=== PATIENT | male | born 1975 ===

== ENCOUNTER 2017-09-22 21:08 | Inpatient (IN) | payer OTHER ==
--- NOTE | 2017-09-22 23:12 | ED ---
Psychiatric Complaint - HPI Summary HPI Summary: Patient is a 42-year-old male who presents to the emergency department after the patient was transferred from [facility] with a chief complaint of having suicidal or homicidal ideation. The patient was medically clear at this [facility]. Patient reports that he will for a concert and he took "a pill" and that he makes him very paranoid, anxious, agitated and with the feelings of having to kill someone or himself. Patient reports he is feeling paranoid and having hallucinations visual and auditory. He reports no past medical history, positive left elbow surgery. Patient has family history of hypertension. - History Of Current Complaint Chief Complaint: EDMentalHealth Time Seen by Provider: 09/22/17 22:58 - Allergies/Home Medications Allergies/Adverse Reactions: Allergies Allergy/AdvReac Type Severity Reaction Status Date / Time No Known Allergies Allergy Verified 09/22/17 21:10 PMH/Surg Hx/FS Hx/Imm Hx Previously Healthy: Yes Endocrine/Hematology History: Denies: Hx Anticoagulant Therapy, Hx Blood Disorders, Hx Blood Transfusions, Hx Bone Marrow Disease, Hx Diabetes, Hx Systemic Lupus Erythematosus, Hx Sickle Cell Disease, Hx Thyroid Disease, Hx Anemia, Hx Unexplained Bleeding, Hx Coagulopothy, Autoimmune Disease, Other Endocrine/Hematological Disorders Cardiovascular History: Denies: Hx Aneurysm, Hx Angina, Hx Angioplasty, Hx Atrial Fibrillation, Hx Auto Implanted Cardiovert Defib, Hx Cardiac Arrest, Hx Cardiomegaly, Hx Congenital Heart Disease, Hx Congestive Heart Failure, Hx Coronary Artery Disease, Hx Deep Vein Thrombosis, Hx Embolism, Hx Hypercholesterolemia, Hx Hypotension, Hx Hypertension, Hx Myocardial Infarction, Hx Pacemaker/ICD, Hx Peripheral Vascular Disease, Hx Rheumatic Fever, Hx Syncope, Hx Valvular Heart Disease, Hx Supraventricular Ventricular Tachycardia, Other Cardiovascular Problems/Disorders Respiratory History: Denies: Hx Asthma, Hx Bronchopulmonary Dysplasia, Hx Chronic Bronchitis, Hx Chronic Obstructive Pulmonary Disease (COPD), Hx Cystic Fibrosis, Hx Lung Cancer , Hx Pleural Effusion, Hx Pneumonia, Hx Pulmonary Edema, Hx Pulmonary Embolism, Hx Seasonal Allergies, Hx Sleep Apnea, Other Respiratory Problems/Disorders GI History: Denies: Hx Cirrhosis, Hx Crohn's Disease, Hx Diverticulosis, Hx Gall Bladder Disease, Hx Gastroesophageal Reflux Disease, Hx Gastrointestinal Bleed, Hx Hiatal Hernia, Hx Irritable Bowel, Hx Jaundice, Hx Obstructive Bowel, Hx Ileostomy, Hx Pyloric Stenosis, Hx Ulcer, Hx Urosepsis, Other GI Disorders Musculoskeletal History: Reports: Other Musculoskeletal History - left elbow surgery Psychiatric History: Reports: Hx Anxiety Denies: Hx Eating Disorder, Hx of Violent Episodes Against Others - Cancer History Hx Hematologic Symptoms: No - Patient denies Infectious Disease History: No Infectious Disease History: Denies: Traveled Outside the [place] in Last 30 Days - Family History Known Family History: Positive: None, Hypertension Negative: Cardiac Disease, Diabetes, Renal Disease, Respiratory Disease Review of Systems Constitutional: Negative Eyes: Negative ENT: Negative Cardiovascular: Negative Respiratory: Negative Gastrointestinal: Negative Genitourinary: Negative Musculoskeletal: Negative Skin: Negative Neurological: Negative Psychological: Other - delusional, paranoia, hallucinations. Positive: Anxious. Negative: Depressed All Other Systems Reviewed And Are Negative: Yes Physical Exam - Summary Physical Exam Summary: VITAL SIGNS: Reviewed. GENERAL: Patient is a well developed and nourished male who is lying comfortable in the stretcher. Patient is not in any acute respiratory distress. HEAD AND FACE: No signs of trauma. No ecchymosis, hematomas or skull depressions. No sinus tenderness. EYES: PERRLA, EOMI x 2, No injected conjunctiva, no nystagmus. EARS: Hearing grossly intact. Ear canals and tympanic membranes are within normal limits. MOUTH: Oropharynx within normal limits. NECK: Supple, trachea is midline, no adenopathy, no JVD, no carotid bruit, no c- spine tenderness, neck with full ROM. CHEST: Symmetric, no tenderness at palpation LUNGS: Clear to auscultation bilaterally. No wheezing or crackles. CVS: Regular rate and rhythm, S1 and S2 present, no murmurs or gallops appreciated. ABDOMEN: Soft, non-tender. No signs of distention. No rebound no guarding, and no masses palpated. Bowel sounds are normal. EXTREMITIES: FROM in all major joints, no edema, no cyanosis or clubbing. NEURO: Alert and oriented x 3. No acute neurological deficits. Speech is normal and follows commands. SKIN: Dry and warm PSYCH: Depressed, quiet, positive suicidal thoughts and plan. Positive homicidal thoughts. Positive pressure speech. No tangential speech. Vital Signs On Initial Exam: Initial Vitals Temp Pulse Resp BP Pulse Ox 98.4 F 89 16 136/90 97 09/22/17 21:09 09/22/17 21:09 09/22/17 21:09 09/22/17 21:09 09/22/17 21:09 Diagnostics - Vital Signs Vital Signs Temp Pulse Resp BP Pulse Ox 09/22/17 21:09 98.4 F 89 16 136/90 97 - Laboratory Lab Statement: Any lab studies that have been ordered have been reviewed, and results considered in the medical decision making process. Course/Dx - Course Assessment/Plan: Patient is a 42-year-old male who was transferred from [facility] due to paranoia, suicidal ideation and homicidal ideation. Patient was medically clear by [facility] physician audiology assistant with normal blood work. Patient is awaiting for medical trains. Patient was ablated by Dr. Patel from psychiatry and he recommends for the patient to be admitted to his services for substance induced psychosis. 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
[2017-09-23] MEDS ORDERED: Acetaminophen TAB* 325 MG PO PRN (01:53)
[2017-09-23] MEDS: Vitamin THERAPEUTIC TAB PO SCH (12:07)
--- NOTE | 2017-09-23 18:05 | HP ---
HISTORY AND PHYSICAL: DATE OF ADMISSION: 09/23/17 IDENTIFYING DATA: Mr. Gordon is a 42-year-old male, who is unemployed, domiciled, and estranged from his 15-year-old daughter. He drove himself to this hospital and to request admission because of suicidal ideation with plan to hang himself. SOURCE OF INFORMATION: The patient is an extremely paranoid and a reluctant historian. This note is dictated based on a limited interview with the patient , review of admission data and nursing progress notes. CHIEF COMPLAINT: "I drove myself to this hospital to let people know I intended to kill myself!" HISTORY OF PRESENT ILLNESS: Lawrence describes that he drove from his home in [place] last Monday to attend a Phish in [place], [place]. He camped around the concert area as part of a group of other motorists who drove for the same reaason. He recalled using, NMDA, methamphetamines and cannabis last Monday. On morning the group organizing the concert announced that it was canceled because of problem with water contamination in the area. Most of the motorists started leaving after the announcement and as he was getting ready himself to leave "he noticed bad people looking at him," asserts that the people started chanting the name of his dog (River) and he realized they were trying to entice him to go retrieve his dog so they could attack him on the way. He asserts the people followed him to his car, acting strangely. He drove around to several locations and the same cars continued to follow him; he pulled over and the cars pulled over also. He became frightened and suicidal , he thought that he would rather kill himself than be killed by other people. He changed his miind and decided to drive himself to the emergency room of this hospital.The patient describes stressors of chronic pain from a fractured left elbow about a year ago, unemployment and lack of social support. REVIEW OF PSYCHIATRIC SYMPTOMS: The patient denies auditory or visual hallucinations, admits to paranoid and persecutory delusions that people are after him to harm him, that a tracking device was placed on his car to monitor his movement, that a drug ring that is after him and has already obtained his address in [place]. He talks about selling his car, his house, changing his phone number, and relocating to [place] where he has relatives. He denies manic symptoms such as decreased need for sleep, increased goal directedness, racing thoughts, pressured speech, grandiosity or involvement in activities with potential for consequences. He endorses high anxiety. He denies panic attacks. He denies signs and symptoms of depression. PAST PSYCHIATRIC HISTORY: History of 1 previous admission about 2 years ago at [facility] in [place] following a suicide attempt. He reportedly tried to jump in front of a train and transit workers grabbed him and prevented him from doing so. At the time, he was under stress from homelessness and drug addiction. He recalls previous trial of Wellbutrin for about a month for depression made him feel numb and he self-discontinued it. He denies any history of violence or self- injury. SUBSTANCE ABUSE HISTORY: The patient reports that he was addicted to crack cocaine for about 6 years until completing an inpatient drug program in [place] called [facility]. He reports using marijuana daily that is prescribed to him because of his pain. He admits to occasional use of NMDA and methamphetamines. PAST MEDICAL HISTORY: The patient reports chronic pain from his left elbow that he fractured and had about 22 surgeries to repair it. FAMILY HISTORY OF PSYCHIATRIC ILLNESS: The patient reports being unaware of any family history of psychiatric illnesses or completed suicide. PERSONAL AND SOCIAL HISTORY: The patient is from [place], [place]. His parents and his maternal grandmother are still living and are his main sources of support. He graduated from high school. He has worked in construction in the past, but has not been able to do so since the fracture of his left elbow in September 2016. His application for Social Security Disability was denied at least 3 times. He was and he fathered a now 15-year-old daughter. He is now now and he does not have contact with neither his daughter nor his ex-. He identified as being heterosexual. REVIEW OF MEDICAL SYMPTOMS: Pain and limitation in the range of movement of left elbow. PHYSICAL EXAMINATION GENERAL: He is a well-appearing 42-year-old male , who does not appear to be in any acute physical distress. He is alert, oriented x3. ADMISSION VITAL SIGNS: Blood pressure is 111/78, pulse is 87, respirations 16, temperature 96.8. HEENT: Head: Atraumatic, normocephalic, symmetrical. Eyes: PERRLA. Tympanic membranes intact. Sclerae anicteric. Conjunctivae clear. NECK: Trachea midline, freely mobile. No cervical lymphadenopathy. No nuchal rigidity. LUNGS: Clear to auscultation bilaterally. HEART: Regular rate and rhythm. S1, S2. No murmurs, gallops, or rubs. BREASTS: No mass or discharge. ABDOMEN: Soft, nontender. No masses, organomegaly, or rebound tenderness. No scars noted. Active bowel sounds in all 4 quadrants. GENITAL: Exam not performed. RECTAL: Exam not performed. EXTREMITIES: Pain and limitation in the range of movement in his left elbow. NEUROLOGIC: Cranial nerves II through XII are intact. Cerebellar function intact. Muscle strength grade 5/5 in all extremities except for his left one. STRUCTURAL EXAM: The patient examined in both supine and upright positions. No gross AP or lateral asymmetry. Gait and movement are within normal limits. SKIN: Skin texture, turgor, and pigmentation are within normal limits. MENTAL STATUS EXAMINATION: He is a well-appearing 42-year-old white male with balding hair pattern, who looks his stated age. He is adequately groomed, dressed in hospital garb. He makes intense eye contact. He presents as hypervigilant, frequently looking over his shoulders. His speech is spontaneous , normal rate, rhythm and volume. His affect is constricted. Mood is anxious. Thoughts are linear and goal directed. There are evidences of paranoid and persecutory persecutory delusions. He denies auditory or visual hallucinations. Insight and judgement are grossly impaired. Impulse control is fair in this setting. He is alert. He is oriented to time, place, and person. Attention, memory and concentration are all poor. Fund of knowledge is adequate. Intelligence is estimated to be in normal average range. SUMMARY: Second lifetime inpatient psychiatric admission for this 42-year-old male with history of suicide attempt, polysubstance abuse and 1 previous attempt at rehabilitation, who drove himself to this hospital, to complain of suicidal ideation with a plan to hang himself and he was unable to contract for safety in the context of drug use. Medical history is remarkable for pain and limitation in the range of movement of his left arm. The patient admitted to past addiction to crack cocaine and to recent use of amphetamines, NMDA and cannabis. He denies the use of alcohol. He denies any family history of psychiatric illnesses or completed suicide. He describes stressors of chronic pain, unemployment, lack of social support. DIAGNOSTIC IMPRESSION: Methamphetamines, NMDA and cannabis use disorder, severe. TREATMENT PLAN: Admit to mental health unit, 15-minute checks, full code status. Legal status is emergency. Initiate comprehensive milieu, individual, and group psychotherapeutic support. Medication management, we will start new trial of risperidone to reverse the patient's psychotic symptoms. He gave informed consent after hearing of the indications, risks, benefits, and alternatives. Discharge planning will involve connecting him with outpatient psychiatric and substance abuse treatment. [id number]/CPS #: [id number] [place]
[2017-09-23] MEDS: risperiDONE TAB* 1 MG PO SCH (22:42)
[2017-09-24] MEDS: risperiDONE TAB* 1 MG PO SCH ×2 (10:43→22:18)
[2017-09-24] MEDS: Vitamin THERAPEUTIC TAB PO SCH (10:43)
[2017-09-24] MEDS: hydrOXYzine HCL TAB* 50 MG PO PRN (19:32)
[2017-09-25 08:19] VITALS: BP 132/75
[2017-09-25] MEDS: Vitamin THERAPEUTIC TAB PO SCH (10:36)
[2017-09-25] MEDS: risperiDONE TAB* 1 MG PO SCH ×2 (10:36→22:06)
[2017-09-25] MEDS: hydrOXYzine HCL TAB* 50 MG PO PRN ×2 (10:37→19:10)
--- NOTE | 2017-09-25 14:45 | PN ---
Subjective - Subjective Date of Service: 09/25/17 Service Type: 41471 Hosp care 15 min low complexity Subjective: Lawrence is found lying in bed. His eye contact is generally good until he flicks his eyes around the room, seeming to be attending to something. he denies hallucinations, however. He states his troublesome psychiatric symptoms are fading, so that his anxiety, paranoia, and suicidal thoughts are manageable and would be more manageable tomorrow or the next day. Objective - Appearance Appearance: Healthy Appearing Dysmorphic Features: No Hygiene: Normal Grooming: Fairly Well Kept - Behavior Psychomotor Activities: Normal Exhibits Abnormal Movement: No - Attitude and Relatedness Attitude and Relatedness: Cooperative Eye Contact: Fair - Speech Quality: Unpressured Latencies: Normal Quantity: Terse - Mood Patient's Decription of Mood: "Okay" - Affect Observed Affect: Fair Affect Consistent with: Dysphoria - Thought Process Patient's Thought Process: Coherent, Goal Directed Thought Content: Yes Passive Wish, No Suicidal Planning, No Homicidal Ideation, No Paranoid Ideation - Sensorium Experiencing Hallucinations: No, Sensorium is Clear Type of Hallucinations: Visual: No - denies, but appears to be responding to vis. stimuli, Auditory: No, Command: No - Level of Consciousness Level of Consciousness: Alert Orientation: Yes Intact, Yes Orientated to Time, Yes Orientated to Place, Yes Orientated to Person - Impulse Control Impulse Control: Impaired - Insight and Judgement Insight and Judgement: Impaired - Group Participation Particating in Group Activities: No - Medication Management Medication Management Adherence: Yes - Additional Observations Comments: Lawrence is well-groomed but lying in bed and not making any moves to get up. He is agreeable and pleasant, but his eyes dart from time to time in a manner that suggests visual hallucinations. Assessment - Assessment Merits Inpatient Hospitalization: For Immediate Safety, For Stabilization, For Discharge Planning Clinical Impression: Lawrence appears to have become significantly impaired and psychotic due to the combination of drugs he took. He recognizes that he made some poor choices and that he would like to make better choices in the future. At this point, his diagnosis appears to be substance induced psychosis. Plan - Plan Treatment Plan: Name: LAWRENCE ABDALLA Birthdate: 1975 [id number] Medications: Current Medications Acetaminophen (Tylenol Tab*) 650 mg PO Q4H PRN PRN Reason: PAIN or TEMP > 101 F Al Hydrox/Mg Hydrox/Simethicone (Maalox Plus*) 30 ml PO Q4H PRN PRN Reason: INDIGESTION Hydroxyzine HCl (Atarax Tab*) 50 mg PO Q4H PRN PRN Reason: ANXIETY Last Admin: 09/25/17 10:37 Dose: 50 mg Multivitamins (Theragran Tab*) 1 tab PO DAILY [facility] Last Admin: 09/25/17 10:36 Dose: 1 tab Risperidone (Risperdal*) 1 mg PO BID [facility] Last Admin: 09/25/17 10:36 Dose: 1 mg - Discharge Plan Discharge Plan: Outpatient Follow Up Outpatient Program: [facility] drug and alcohol counseling Additional Comments: Lawrence is agreeable to going to outpatient drug and alcohol counseling. He feels like this might be a good time to relocate to [place].
[2017-09-25] MEDS: Al Hydrox/Mg Hydrox/Simet LIQ* 30 ML UDC PO PRN (19:10)
[2017-09-26] MEDS: risperiDONE TAB* 1 MG PO SCH ×2 (10:23→20:35)
[2017-09-26] MEDS: Vitamin THERAPEUTIC TAB PO SCH (10:23)
[2017-09-26] MEDS: Al Hydrox/Mg Hydrox/Simet LIQ* 30 ML UDC PO PRN ×3 (11:01→20:38)
--- NOTE | 2017-09-26 15:26 | PN ---
Subjective - Subjective Date of Service: 09/26/17 Service Type: [id number] Hosp care 15 min low complexity Subjective: In talking with Lawrence, he explains that his plans are not really that strange. He has expensive tortoises that he was bringing to a pet store instead of bringing them to the [employer]. The store was closed, so the tortoises had to come. He has been planning to move to [place] to be with his parents and grandparents. He sadly looked at me when he described being lonely and feeling for some time that he would benefit from being around family. he had enough insight to see that it did appear odd to an outside observer that he would become psychotic, have turtles, a large dog, and plans to sell his house and move to [place]. Objective - Appearance Appearance: Healthy Appearing Dysmorphic Features: No Hygiene: Normal Grooming: Well Kept - Behavior Psychomotor Activities: Normal Exhibits Abnormal Movement: No - Attitude and Relatedness Attitude and Relatedness: Cooperative Eye Contact: Good - Speech Quality: Unpressured Latencies: Normal Quantity: Appropriate - Mood Patient's Decription of Mood: "Fine" - Affect Observed Affect: Fair Affect Consistent with: Dysphoria - Thought Process Patient's Thought Process: Coherent Thought Content: No Passive Wish, No Suicidal Planning, No Homicidal Ideation, No Paranoid Ideation - Sensorium Experiencing Hallucinations: No, Sensorium is Clear Type of Hallucinations: Visual: No, Auditory: No, Command: No - Level of Consciousness Level of Consciousness: Alert Orientation: Yes Intact, Yes Orientated to Time, Yes Orientated to Place, Yes Orientated to Person - Impulse Control Impulse Control: Intact - Insight and Judgement Insight and Judgement: Good - Group Participation Particating in Group Activities: No - Medication Management Medication Management Adherence: Yes - Additional Observations Comments: Lawrence is well-groomed and sits up in bed to chat. He is agreeable and pleasant , and his eyes are steady and meet mine. He is reasonable and demonstrates good insight with some self-reflection and understanding. Assessment - Assessment Merits Inpatient Hospitalization: For Immediate Safety, For Discharge Planning Clinical Impression: Lawrence appears to have become significantly impaired and psychotic due to the combination of drugs he took. He recognizes that he made some poor choices and that he would like to make better choices in the future. His diagnosis appears to be substance induced psychosis. At this time, he is preparing to leave and does not appear to have any psychotic symptoms currently. Plan - Plan Treatment Plan: Name: LAWRENCE ABDALLA Birthdate: 1975 [id number] Medications: Current Medications Acetaminophen (Tylenol Tab*) 650 mg PO Q4H PRN PRN Reason: PAIN or TEMP > 101 F Al Hydrox/Mg Hydrox/Simethicone (Maalox Plus*) 30 ml PO Q4H PRN PRN Reason: INDIGESTION Last Admin: 09/26/17 11:01 Dose: 30 ml Hydroxyzine HCl (Atarax Tab*) 50 mg PO Q4H PRN PRN Reason: ANXIETY Last Admin: 09/25/17 19:10 Dose: 50 mg Multivitamins (Theragran Tab*) 1 tab PO DAILY [facility] Last Admin: 09/26/17 10:23 Dose: 1 tab Risperidone (Risperdal*) 1 mg PO BID [facility] Last Admin: 09/26/17 10:23 Dose: 1 mg - Discharge Plan Discharge Plan: Outpatient Follow Up Additional Comments: Lawrence is agreeable to going to outpatient drug and alcohol counseling. He feels like this might be a good time to relocate to [place], which apparently has been in the works for a while now, not just since the [employer]. It would be a good thing to get him into drug and alcohol treatment wherever he ends up, especially given the extensive history he has with drug use.
[2017-09-26] MEDS: hydrOXYzine HCL TAB* 50 MG PO PRN (18:56)
[2017-09-27] MEDS: risperiDONE TAB* 1 MG PO SCH (09:55)
[2017-09-27] MEDS: Vitamin THERAPEUTIC TAB PO SCH (09:56)
[2017-09-27] MEDS: Al Hydrox/Mg Hydrox/Simet LIQ* 30 ML UDC PO PRN (11:08)
--- NOTE | 2017-09-27 16:16 | DS ---
DATE OF ADMISSION: 09/23/2017. DATE OF DISCHARGE: 09/27/2017. PROVIDER: Hortensia Means NP in Psychiatry. SUPERVISING PHYSICIAN: Dr. Iraj Judd * (dictated by Hortensia Means NP). DISCHARGE DIAGNOSES: AXIS I: Substance induced psychosis. CONDITION AT THE TIME OF DISCHARGE: Improved, psychiatrically cleared, stable. He did not participate in many groups and instead slept which was acceptable. He was social with select peers. His family is agreeable to discharge. He did well here psychiatrically. He tolerated Risperdal well. He will be attending alcohol and drug treatment in [place] where he is moving and will be attending mental health treatment there as well. MENTAL STATUS EXAM AT THE TIME OF DISCHARGE: The patient is calm, cooperative, makes good eye contact. He is alert and oriented times three. His grooming is good. His speech pace is normal. His thought processes are logical at this time. He is not psychotic, not delusional. He denies AH, VH, SI, and HI. His insight and judgment are improved and seem to be good. He is willing to follow- up. DISCHARGE INSTRUCTIONS: A. Medications: Hydroxyzine 50 mg q.4 hours prn anxiety, Risperdal 1 mg by mouth b.i.d. B. Diet: Regular. C. Activities: As tolerated. Lawrence is a nonsmoker and there are no studies pending at the time of discharge. D. Follow-up care: Appointments are available to Lawrence in [place] when he arrives. He anticipates moving there soon. E. Substance abuse follow-up: Substance abuse follow-up is indicated and he is also referred to [place] using a referral telephone number for substance abuse treatment and medication. HOSPITAL COURSE - PART A: Chief complaint: "I drove myself to the hospital to let people know I intended to kill myself." Lawrence describes that he drove from his home in [place] last Monday to attend a [employer] concert in [place], [place]. He camped around the concert area as part of a group of other motorists who drove for the same reason. He recalled using MMDA , methamphetamine, and cannabis last Monday. On morning, the group organizing the concert announced that it was cancelled because of a problem with water contamination in the area. Most of the motorists started leaving after the announcement and as he was getting ready himself to leave, he " noticed bad people looking at him," asserts that the people started chanting the name of his dog, River, and he realized that they were trying to entice him to go retrieve his dog so they could attack him on the way. He asserts the people followed him to his car acting strangely. He drove around to several locations and the same cars continued to follow him. He pulled over and the cars pulled over also. He became frightened and suicidal. He thought that he would rather kill himself than be killed by other people. He changed his mind and decided to drive himself to the emergency room of this hospital. The patient describes stressors of chronic pain from a fractured left elbow about a year ago, unemployment, and a lack of social support. HOSPITAL COURSE - PART B: Psychiatric treatment rendered: The patient was admitted to the Adult Behavioral Unit and placed on 15 minute checks for safety. Lawrence did well on the unit, went to some groups. He interacted with some peers. Much of the time was spent resting and trying to reduce the psychotic symptoms he was experiencing. He tolerated the addition of Hydroxyzine and Risperdal well. He is now taking Risperdal 1 mg b.i.d. and he states that he would like to continue that. We phoned his family. No consults were entered. He is much improved. He is no longer appearing physically to be responding to internal stimuli. His paranoia appears to be reduced and he is much easier to converse with. HORTENSIA MEANS, ARNIE [id number]/CPS #: [id number] [place]
== END 2017-09-27 11:20 | disposition home or self-care (01) | DRG 776 ==
LOC: ED 21:08 → BSU 09-23 00:42
PROVIDERS: ADMIT Psychiatry & Neurology Psychiatry; ATTEND Psychiatry & Neurology Psychiatry
DX: F15.150 Other stimulant abuse with stimulant-induced psychotic disorder with delusions (principal); R45.851 Suicidal ideations; F12.150 Cannabis abuse with psychotic disorder with delusions; M25.522 Pain in left elbow
CPT/HCPCS: 99222; 99231; 99285; A9270-GY